=== PATIENT | male | born 2000 | race Caucasian/White ===

== ENCOUNTER 2022-07-23 08:57 | Emergency (ER) | payer SELFPAY ==
[2022-07-23] MEDS ORDERED: Acetaminophen/oxyCODONE 325-5 MG Tab PO ONE (10:00)
[2022-07-23] MEDS ORDERED: Ibuprofen 600 MG Tab PO ONE (10:00)
== END 2022-07-23 10:50 | disposition home or self-care (01) ==
LOC: JD.ED 08:57
DX: T33.521A Superficial frostbite of right hand, initial encounter (principal); T33.522A Superficial frostbite of left hand, initial encounter; Z79.899 Other long term (current) drug therapy
CPT/HCPCS: 99283; A9270

== ENCOUNTER 2022-07-24 13:54 | Emergency (ER) | payer SELFPAY ==
[2022-07-24] MEDS ORDERED: Acetaminophen/oxyCODONE 325-5 MG Tab PO ONE (14:07)
== END 2022-07-24 14:33 | disposition home or self-care (01) ==
LOC: JD.ED 13:54
DX: T33.822A Superficial frostbite of left foot, initial encounter (principal); T33.821A Superficial frostbite of right foot, initial encounter; X31.XXXA Exposure to excessive natural cold, initial encounter; Y92.89 Other specified places as the place of occurrence of the external cause; Y99.0 Civilian activity done for income or pay
CPT/HCPCS: 99283; A9270